=== PATIENT | male | born 1950 | race Caucasian/White ===

== ENCOUNTER → 2023-06-06 07:40 | Outpatient (CLI) | payer MEDICARE, OTHER, SELFPAY ==
--- NOTE | 2023-06-06 | DI.ECHO.S_ITS ---
[facility]---------+ [facility] +---------+ : : [address] : [place] : : : : [id number] : : : : Phone: [phone]---------+ Echocardiogram Report + + :Name: JARROD DANIELS Study Date: 06/06/2023 Height: 72 in : :[facility] ReadingLocation: Weight: 210 lb : : Gender: Male BSA: 2.2 m2 : :: 1950 Age: 72 yrs BP: 148/95 mmHg: :Reason For Study: PLEURAL EFFUSION : :Ordering Physician: AGUS KELLY Performed By: Gabriella Dillard : :Referring: AGUS KELLY : + + Interpretation Summary The left ventricle is normal in size and wall thickness. The left ventricular ejection fraction is normal. The ejection fraction is estimated to be 55-60%. The right ventricle is normal in size and function. There is moderate tricuspid regurgitation. The right ventricular systolic pressure is estimated to be at least 35 mmHg based on an estimated right atrial pressure of 3 mm Hg. Procedure: A two-dimensional transthoracic echocardiogram with color flow and Doppler was performed. The study quality was technically adequate. There is no prior echocardiogram noted for this patient. The patient was in sinus rhythm with heart rates between 64-90 bpm during the exam. Left Ventricle: The left ventricle is normal in size and wall thickness. There is no thrombus. The ejection fraction is estimated to be 55-60%. The left ventricular ejection fraction is normal. There are no focal wall motion abnormalities. No significant diastolic dysfunction. Right Ventricle: The right ventricle is normal in size and function. Atria: The left atrial size is normal. Right atrial size is normal. There is no Doppler evidence for an interatrial shunt. Mitral Valve: The mitral valve leaflets are mildly calcified. Tip of anterior mitral leaflet is calcified. There is trace mitral regurgitation. Aortic Valve: The aortic valve is trileaflet. The aortic valve opens well. There is no aortic valve stenosis. No aortic regurgitation is present. Tricuspid Valve: The tricuspid valve is normal. There is moderate tricuspid regurgitation. The right ventricular systolic pressure is estimated to be at least 35 mmHg based on an estimated right atrial pressure of 3 mm Hg. Pulmonic Valve: The pulmonic valve is not well seen, but is grossly normal. There is mild pulmonic regurgitation. Great Vessels: The aortic root is normal size. The dimensions of the ascending aorta are normal. The IVC is of normal diameter and collapses greater than 50% with a sniff. This suggests a low right atrial pressure of 3 mm Hg. Pericardium/ Pleura There is no pericardial effusion. There is no pleural effusion. MMode/2D Measurements & Calculations LVIDd: 4.4 cm LVOT diam: 2.5 cm LVIDs: 3.2 cm Ao root diam: 3.5 cm FS: 28.5 % asc Aorta Diam: 3.8 cm EPSS: 0.37 cm IVSd: 0.91 cm LVPWd: 0.90 cm LV trinh. diameter/BSA (cm/m^2): 2.0 LV sys. diameter/BSA (cm/m^2): 1.5 LA A2 area: 22.1 cm2 RA long axis: 6.0 cm LA A4 area: 18.0 cm2 RA area: 19.7 cm2 LA length (vol): 6.1 cm RA vol: 55.1 ml LA vol: 55.2 ml RA : 25.4 ml/m2 LA vol index: 25.4 ml/m2 IVC diam: 1.7 cm RVD1 (basal): 3.8 cm TAPSE: 2.2 cm Doppler Measurements & Calculations Ao V2 max: 118.0 cm/sec LVOT Max Kevin: 126.9 cm/sec Ao V2 mean: 92.5 cm/sec LV V1 max P.4 mmHg Ao max P.6 mmHg LV V1 VTI: 26.3 cm Ao mean P.6 mmHg PRINCE(I,D): 4.8 cm2 Ao V2 VTI: 26.1 cm PRINCE(V,D): 5.1 cm2 sev ratio: 1.0 PRINCE indexed to BSA (cm^2/m^2): 2.2 MV E max kevin: 85.3 cm/sec TR max kevin: 284.4 cm/sec MV A max kevin: 74.6 cm/sec TR max P.3 mmHg MV E/A: 1.1 PA V2 max: 98.8 cm/sec Med Peak E' Kevin: 10.6 cm/sec PA V2 mean: 70.1 cm/sec E/E' med: 8.0 PA mean P.2 mmHg Lat Peak E' Kevin: 12.8 cm/sec PA pr(Accel): 51.6 mmHg E/E' lat: 6.7 E/e' average: 7.4 MV dec time: 0.20 sec SV(LVOT): 125.5 ml Reading Physician:10:29 AM
== END ==
PROVIDERS: Referring Provider Registered Nurse; Visit Provider Registered Nurse
DX: I07.1 Rheumatic tricuspid insufficiency (principal); J90 Pleural effusion, not elsewhere classified; I37.1 Nonrheumatic pulmonary valve insufficiency
CPT/HCPCS: 93306